=== PATIENT | female | born 1970 | race Hispanic/Latino ===

== ENCOUNTER 2017-05-12 09:36 | Outpatient (CLI) | payer SELFPAY ==
--- NOTE | 2017-05-12 10:59 | MMO ---
SCREENING MAMMOGRAPHY: DATE: 05/12/17. COMPARISON: None. HISTORY: Baseline screening mammogram. FINDINGS: The patient's mammogram is interpreted with the assistance of computer-aided detection. The breast parenchyma is heterogeneously dense, limiting mammographic sensitivity. There are scattered benign-appearing microcalcifications seen bilaterally. There is no dominant mass lesion or architectural distortion. No concerning microcalcifications are noted. IMPRESSION: BI-RADS 2 - benign findings. Recommend annual screening advised. POS: [facility]
== END 2017-05-12 09:37 | disposition home or self-care (01) ==
LOC: SCSMAMMO 09:36
PROVIDERS: ATTEND Nurse Practitioner Women's Health
DX: Z12.31 Encounter for screening mammogram for malignant neoplasm of breast (principal)
CPT/HCPCS: 77067

== ENCOUNTER 2019-01-09 21:53 | Emergency (ER) | payer OTHER, SELFPAY ==
[2019-01-09 22:19] LABS: #Eosinphils 0.1 thou/uL (0.0-0.7); #Lymphocytes 3.7 thou/uL (1.20-3.40); #Monocytes 0.7 thou/uL (0.11-0.59); #Neutrophils 4.1 thou/uL (1.40-6.50); %Basophils 0.4 % (0.0-1.0); %Eosinophils 0.8 % (0.0-10.0); %Monocytes 8.4 % (0.0-10.0); %Neutrophils 47.5 % (42.0-75.0); Hemoglobin 13.6 g/dL (12.0-16.0); Mean Corpuscular HGB CONC 34.4 g/dL (32.0-36.0); Mean Corpuscular Hemoglobin 28.9 pg (27.0-31.0); Mean Corpuscular Volume 84.1 fL (78.0-98.0); Mean Platelet Volume 8.2 fL (7.4-10.4); Platelet Count 193 thou/uL (130-400); RBC Distribution Width 12.8 % (11.5-14.5); Red Blood Cell (RBC) Count 4.72 mill/uL (4.20-5.40); White Blood Cell (WBC) Count 8.5 thou/uL (4.8-10.8)
[2019-01-09] MEDS ORDERED: methylPREDNISolone Sod Succ/PF 125 MG/2 ML VIAL ONE (22:20)
[2019-01-09] MEDS ORDERED: diphenhydrAMINE 50 MG/ML VIAL ONE (22:20)
[2019-01-09] MEDS ORDERED: Famotidine/PF 20 mg/2ml Vial ONE (22:20)
[2019-01-09 22:41] LABS: ALT (SGPT) 9 U/L (8-55); AST (SGOT) 11 U/L (5-34); Albumin 4.1 g/dL (3.5-5.0); Alkaline Phosphatase 108 U/L (40-110); Anion Gap 11 mmol/L (10-20); BUN (Urea Nitrogen) 14 mg/dL (7.0-18.7); Bilirubin, Total 0.3 mg/dL (0.2-1.2); Calc. Creatinine Clearance 0 mL/min (70-130); Calcium 9.1 mg/dL (7.8-10.44); Carbon Dioxide 25 mmol/L (22-29); Chloride 104 mmol/L (98-107); Estimated GFR-MDRD 77; Globulin 3.5 g/dL (2.4-3.5); Glucose 158 mg/dL (70-105); Potassium 3.4 mmol/L (3.5-5.1); Protein, Total 7.6 g/dL (6.0-8.3); Sodium 137 mmol/L (136-145)
[2019-01-10 00:14] LABS: Bilirubin Negative (Negative); Blood, Urine Negative (Negative); Clarity Clear (Clear); Glucose, Urine (Dipstick) Normal (Negative); Leukocyte Negative Leu/uL (Negative); Nitrite Negative (Negative); Protein, Urine (Dipstick) 20 mg/dL (Neg-Trace); Urobilinogen Normal mg/dL (Less than 2)
[2019-01-10 00:18] LABS: Pregnancy Test - Urine (BHCG) Negative (Negative); Pregu Control Background? CLEAR/WHITE (CLR/WHITE); Pregu Control Bar Appear? YES (CONTROL BAR); Specific Gravity 1.026 (1.002-1.036)
== END 2019-01-10 00:19 | disposition home or self-care (01) ==
LOC: ERS 21:53
DX: T78.40XA Allergy, unspecified, initial encounter (principal)
CPT/HCPCS: 80053; 81003; 81025; 85025; 96374; 96375; J1200; J2930; S0028

== ENCOUNTER 2023-12-30 12:59 | Outpatient (CLI) | payer OTHER | END 2023-12-30 13:00 | disposition home or self-care (01) | LOC: BICRAD 12:59 | PROVIDERS: ATTEND Nurse Practitioner Family | DX: S69.91XA Unspecified injury of right wrist, hand and finger(s), initial encounter (principal) ==